=== PATIENT | male | born 1990 | race Caucasian/White ===

== ENCOUNTER 2018-06-20 21:19 | Emergency (ER) | payer OTHER ==
[~2018-06-20] VITALS: Ht 180.3 cm; Wt 88.5 kg
[2018-06-20 22:31] VITALS: BP 111/67
[2018-06-20] MEDS ORDERED: LIDOCAINE 1% PF 2 ML VIAL. INJ ONE (23:30)
[2018-06-20] MEDS ORDERED: BUPIVACAINE MPF 0.25% 10 ML VIAL. IJ ONE (23:30)
[2018-06-20] MEDS ORDERED: HYDROcodone/APAP 5/325MG 1 TAB TABLET PO ONE (23:30)
[2018-06-21] MEDS ORDERED: CEPH500T PO (01:11)
[2018-06-21] MEDS ORDERED: HYDR-3164 PO (01:11)
--- NOTE | 2018-06-21 01:12 | PHYS DOC ---
Past Medical History Past Medical History: No Pertinent History Past Surgical History: Appendectomy Alcohol Use: Occasionally Drug Use: None Adult General Chief Complaint Chief Complaint: LACERATION/AVULSION HPI HPI Patient is a 27 year old male who presents with right thumb nail avulsion. Patient states his right thumb got caught between a hector and a trailer. Patient states he is ambidextrous. Review of Systems Review of Systems Constitutional: Denies fever or chills [] Musculoskeletal: Right thumb nail avulsion Integument: Denies rash or skin lesions [] Neurologic: Denies headache, focal weakness or sensory changes [] All other systems were reviewed and found to be within normal limits, except as documented in this note. Current Medications Current Medications Current Medications Medications (Trade) Dose Ordered Sig/Cleopatra Start Time Stop Time Status Last Admin Dose Admin Acetaminophen/ Hydrocodone Bitart (Lortab 5/325) 2 tab 1X ONCE 06/20/18 23:30 12 23:31 DC 06/20/18 23:30 2 TAB Bupivacaine HCl (Sensorcaine-Mpf 0.25%) 10 ml 1X ONCE 06/20/18 23:30 06/20/18 23:31 DC 06/21/18 00:34 10 ML Lidocaine HCl (Xylocaine-Mpf 1% 2ml Vial) 2 ml 1X ONCE 06/20/18 23:30 06/20/18 23:31 DC 06/21/18 00:35 2 ML Allergies Allergies Allergies Coded Allergies Type Severity Reaction Last Updated Verified No Known Drug Allergies 06/20/18 No Physical Exam Physical Exam Constitutional: Well developed, well nourished, no acute distress, non-toxic appearance. [] Skin: C extremity Back: No tenderness, no CVA tenderness. [] Extremities: Right thumb with partial nail avulsion on the base of the nail, the lateral aspects is still attached. Full range of motion to the right thumb including flexion and extension of the thumb. +2 right radial pulse. Adequate radial sensation to the thumb. Neurologic: Alert and oriented X 3, normal motor function, normal sensory function, no focal deficits noted. [] Psychologic: Affect normal, judgement normal, mood normal. [] Current Patient Data Vital Signs Vital Signs Date Time Temp Pulse Resp B/P (MAP) Pulse Ox O2 Delivery O2 Flow Rate FiO2 06/20/18 22:31 98.0 65 18 111/67 (82) 99 Room Air 98.0 EKG EKG [] Radiology/Procedures Radiology/Procedures Laceration/Wound Repair Wound Location: Right thumb nail avulsion Wound's Depth, Shape: Horizontal Wound Length (cm): Approximately 3 cm Wound Explored: clean Irrigated w/ Saline (ccs): 250 Betadine Prep?: Yes Anesthesia: No block was performed to the thumb using 0.25 of bupivacaine and 1% of lidocaine Volume Anesthetic (ccs): Approximately 5 mL Wound Repaired With: Vicryl Suture Size/Type: 3.0-interrupted sutures Number of Sutures: 5 Progress :[][] Course & Med Decision Making Course & Med Decision Making Pertinent Labs and Imaging studies reviewed. (See chart for details) This is a 27-year-old male patient presenting to the ED today with partial nail avulsion of the right thumb after a work related injury. Right thumb x-rays interpreted by Dr. Donovan were negative for any acute findings. The nail was placed back and sutured in place. Discharged on cephalexin. Instructed to ice and elevate the affected area. Follow-up with workel[facility] jenkins as well as hand surgeon provided as needed. Provided return precautions. Tetanus up-to-date. Dragon Disclaimer Dragon Disclaimer This electronic medical record was generated, in whole or in part, using a voice recognition dictation system. Departure Departure Impression: Primary Impression: Contusion of right thumb Additional Impression: Nail avulsion, finger Disposition: 01 HOME, SELF-CARE Condition: STABLE Referrals: NO PCP (PCP) CHEN BUENO MD follow up with Work [facility] jenkins or Dr. Carmona hand surgeon at Dr. Bueno's office in 2 weeks as needed Patient Instructions: Contusion, [id number], Nail Avulsion Injury Additional Instructions: You have right thumb contusion with nail avulsion. We put the nail back in, we hope a new nail grows back there is a slight chance it may never grow back. In that case follow-up with the provided hand surgeon. Take the prescribed antibiotics until completed. Monitor the area for any signs of infection including increased redness warmth to the area odor/yellow drainage from the area and return to the ED if they occur. Take the prescribed pain medicine only as needed for pain. We gave you hydrocodone in the emergency room. You can take your next dose tomorrow morning. Scripts Cephalexin (CEPHALEXIN) 500 Mg Tablet 1 TAB PO QID, #40 TAB Prov: BOBYMAGGIE SCHUSTER GERSON 06/21/18 Hydrocodone/Apap 5-325 (NORCO 5-325 TABLET) 1 Each Tablet 1-2 TAB PO Q4-6HRS PRN for PAIN, #20 TAB Prov: BOBYLANDENMAGGIE GERSON 06/21/18 Problem Qualifiers Primary Impression: Contusion of right thumb Encounter type: initial encounter Damage to nail status: with damage Qualified Codes: S60.111A - Contusion of right thumb with damage to nail, initial encounter Additional Impression: Nail avulsion, finger Encounter type: initial encounter Qualified Codes: S61.309A - Unspecified open wound of unspecified finger with damage to nail, initial encounter MAGGIE EVANS APRN Jun 21, 2018 01:12
--- NOTE | 2018-06-21 09:07 | RAD ---
THREE VIEWS right FINGER Clinical History: RIGHT THUMB PAIN AFTER SMASHING DIGIT AT WORK TODAY Technique: AP view of the hand, as well as lateral and AP collimated views of the thumb were obtained. Comparison: None. Findings: There is no acute fracture or dislocation. There is bandage material overlying the tip of the thumb. No obvious soft tissue swelling is seen radiographically. There is a 1 mm radiopaque foreign body in the palmar soft tissues at the level of the mid distal phalanx of the thumb. IMPRESSION: No acute fracture. Tiny radiopaque foreign body. Electronically signed by: Kaden Dixon MD (06/21/2018 9:03 AM) [id number]
== END 2018-06-21 01:23 | disposition home or self-care (01) ==
LOC: ER 21:19
DX: S61.101A Unspecified open wound of right thumb with damage to nail, initial encounter (principal); S60.011A Contusion of right thumb without damage to nail, initial encounter; W23.0XXA Caught, crushed, jammed, or pinched between moving objects, initial encounter; Y93.89 Activity, other specified; Y92.89 Other specified places as the place of occurrence of the external cause; Y99.8 Other external cause status
CPT/HCPCS: 64450; 73140; 99284; J3490; 11730; 99283